=== PATIENT | male | born 1970 | race African-American/Black ===

== ENCOUNTER 2024-09-01 10:26 | Emergency (ER) | payer BC, MEDICAID, OTHER ==
[~2024-09-01] VITALS: Ht 172.7 cm; Wt 86.0 kg
[2024-09-01 10:31] VITALS: O2SAT 96
[2024-09-01 10:46] VITALS: TEMP 36.9
[2024-09-01 11:21] LABS: BASOPHILS % 0.7 % (0.0-2.0); EOSINOPHILS % 7.2 % (0.0-5.0); HEMATOCRIT. 39.4 % (42.0-52.0); LYMPHOCYTES % 16.5 % (20.0-50.0); MEAN CORPUSCULAR VOLUME 87.8 fL (80.0-94.0); MEAN PLATELET VOLUME 9.7 fl (7.4-10.4); MONOCYTES % 5.6 % (2.0-8.0); PLATELET 242 x1000/uL (130-400); RED BLOOD CELL COUNT 4.49 mill/uL (4.7-6.1); RED CELL DISTRIBUTION WIDTH 14.1 % (11.6-14.6)
[2024-09-01 11:29] LABS: PROTHROMBIN TIME 10.8 sec (9.6-11.0)
[2024-09-01 11:38] LABS: TROPONIN I HIGH SENSITIVITY 7 ng/L (3.0-53)
[2024-09-01 12:38] LABS: CHLORIDE 102 mEq/L (98-107); POTASSIUM 5.9 mEq/L (3.5-5.1); SODIUM 134 mEq/L (136-145)
[2024-09-01 12:39] LABS: CARBON DIOXIDE 18 mEq/L (21-32)
[2024-09-01 12:40] LABS: CALCIUM 9.1 mg/dL (8.7-10.4)
[2024-09-01 12:44] LABS: CREATININE 1.7 mg/dL (0.6-1.3); GLUCOSE 172 mg/dL (70-105); UREA NITROGEN BLOOD 19 mg/dL (9-23)
[2024-09-01] MEDS ORDERED: SODIUM CHLORIDE 0.9% 1,000 ML IV NR (13:15)
[2024-09-01 14:19] LABS: CALCIUM 9.4 mg/dL (8.7-10.4)
[2024-09-01 14:23] LABS: CREATININE 1.5 mg/dL (0.6-1.3)
[2024-09-01 14:48] VITALS: BP 141/94; PULSE 105; RESP 25; O2SAT 96
== END 2024-09-01 15:06 | disposition home or self-care (01) ==
LOC: ER 10:26
DX: R55 Syncope and collapse (principal); I10 Essential (primary) hypertension; I25.2 Old myocardial infarction; Z86.73 Personal history of transient ischemic attack (TIA), and cerebral infarction without residual deficits; Z79.899 Other long term (current) drug therapy
CPT/HCPCS: 80048; 83880; 85025; 85610; 84484; 36415; 71045; 70450; 93005; 99285; Z7610